=== PATIENT | male | born 1995 | race Caucasian/White ===

== ENCOUNTER 2019-07-27 04:43 | Emergency (ER) | payer SELFPAY ==
[~2019-07-27] VITALS: Ht 175.3 cm; Wt 73.5 kg
[2019-07-27 04:47] VITALS: BP 146/81
[2019-07-27] MEDS ORDERED: TDAP [DIPH/PERTUSSIS/TET] 0.5 ML VIAL IM ONE ×2 (05:00→05:23)
[2019-07-27] MEDS ORDERED: LIDOCAINE 1%-EPI 1:100,000 20 ML VIAL ONE (05:04)
--- NOTE | 2019-07-27 05:08 | NUR ---
CALLING [employer] DISPATCH SPOKE TO [employer] [phone]. NOTIFIED THAT PT DOES NOT WANT TO FILE A REPORT AT THIS TIME.
--- NOTE | 2019-07-27 05:13 | NUR ---
INCIDENT NUMBER FOR [employer] REPORT [phone]
== END 2019-07-27 05:36 | disposition home or self-care (01) ==
LOC: ER 04:45
DX: S41.012A Laceration without foreign body of left shoulder, initial encounter (principal); F17.200 Nicotine dependence, unspecified, uncomplicated; Y08.89XA Assault by other specified means, initial encounter; Y93.89 Activity, other specified; Y92.89 Other specified places as the place of occurrence of the external cause; Y99.8 Other external cause status
CPT/HCPCS: 12002; 90471; 90715; 99283; A6403; J3490